=== PATIENT | male | born 1995 | race Caucasian/White ===

== ENCOUNTER 2022-05-23 06:37 | Emergency (ER) | payer OTHER ==
[~2022-05-23] VITALS: Ht 182.9 cm; Wt 65.8 kg
[~2022-05-23 06:37] MED LIST: CEPH500 PO; CODACE30 PO; HYDACE5 PO; IBUP100S; IBUP100S PO; IBUP600 PO; NEOPOLHYDS OT; Norco 5-325 Ta1 EACH PO; PENVK250SU PO; PENVK500 PO; SULTRIDS PO
== END 2022-05-23 08:41 | disposition home or self-care (01) ==
LOC: ER 06:37
DX: R51.9 Headache, unspecified (principal); R05.9 Cough, unspecified; F17.290 Nicotine dependence, other tobacco product, uncomplicated
CPT/HCPCS: 99283

== ENCOUNTER 2023-12-29 20:38 | Emergency (ER) | payer OTHER ==
[~2023-12-29] VITALS: Ht 182.9 cm; Wt 65.8 kg
[2023-12-29 23:00] VITALS: BP 135/93
[2023-12-29] MEDS ORDERED: Amoxicillin/Clavulanate K 875 MG Tab PO ONE (23:00)
[2023-12-29] MEDS ORDERED: Dexamethasone Sod Phos 10 MG/ML 1ML VIAL PO ONE (23:00)
[2023-12-29] MEDS ORDERED: RX Prepack 6 Tabs Oxycodone 5mg UD ONE (23:00)
[2023-12-29] MEDS ORDERED: AMOCLA875 PO (23:11)
== END 2023-12-29 23:15 | disposition home or self-care (01) ==
LOC: ER 20:38
DX: K08.89 Other specified disorders of teeth and supporting structures (principal); K02.9 Dental caries, unspecified; K03.81 Cracked tooth; R60.0 Localized edema; F17.290 Nicotine dependence, other tobacco product, uncomplicated
CPT/HCPCS: 99282; A9270; J1100